=== PATIENT | male | born 1960 | race Two or more races ===

== ENCOUNTER 2017-10-23 14:47 | Emergency (ER) | payer MEDICAID ==
[~2017-10-23] VITALS: Ht 177.8 cm; Wt 79.4 kg
[2017-10-23 16:13] VITALS: BP 124/76
== END 2017-10-23 17:01 | disposition home or self-care (01) ==
LOC: ER 15:00
DX: M25.811 Other specified joint disorders, right shoulder (principal); F17.210 Nicotine dependence, cigarettes, uncomplicated; L08.9 Local infection of the skin and subcutaneous tissue, unspecified

== ENCOUNTER 2017-10-29 11:35 | Emergency (ER) | payer MEDICAID ==
[~2017-10-29] VITALS: Ht 177.8 cm; Wt 86.2 kg
[2017-10-29] MEDS ORDERED: LIDOCAINE 1% (LOCAL ANESTH.) PF 5ml SDV IJ ONE (14:15)
[2017-10-29 14:40] VITALS: BP 127/90
[2017-10-29] MEDS ORDERED: cefTRIAXone SOD 1,000 MG VL IM ONE (14:45)
== END 2017-10-29 15:06 | disposition home or self-care (01) ==
LOC: ER 11:35
DX: L02.413 Cutaneous abscess of right upper limb (principal)
CPT/HCPCS: 10060; 96372; 99283; J0696

== ENCOUNTER 2017-10-31 09:50 | Emergency (ER) | payer MEDICAID ==
[~2017-10-31] VITALS: Ht 180.3 cm; Wt 81.6 kg
[2017-10-31 09:58] VITALS: BP 125/89
== END 2017-10-31 12:08 | disposition home or self-care (01) ==
LOC: ER 09:50
DX: L02.413 Cutaneous abscess of right upper limb (principal); F12.10 Cannabis abuse, uncomplicated; F17.210 Nicotine dependence, cigarettes, uncomplicated; Z48.01 Encounter for change or removal of surgical wound dressing